=== PATIENT | female | born 2005 | race Caucasian/White ===

== ENCOUNTER 2024-09-16 13:18 | Emergency (ER) | payer OTHER, SELFPAY ==
[2024-09-16 13:25] VITALS: BP 125/83
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
[2024-09-16 15:04] VITALS: BP 123/83
== END 2024-09-16 15:06 | disposition home or self-care (01) ==
LOC: EMR 13:18
PROVIDERS: EMERGENCY PHYSICIAN Student in an Organized Health Care Education/Training Program; FAMILY PHYSICIAN Registered Nurse
DX: S63.502A Unspecified sprain of left wrist, initial encounter (principal); M54.2 Cervicalgia; R07.89 Other chest pain; V49.40XA Driver injured in collision with unspecified motor vehicles in traffic accident, initial encounter
CPT/HCPCS: 29125; 99283; 73110